=== PATIENT | male | born 1975 | race Caucasian/White ===

== ENCOUNTER 2023-12-12 06:46 | Emergency (ER) | payer MEDICAID ==
[~2023-12-12] VITALS: Ht 182.9 cm; Wt 91.0 kg
[2023-12-12 06:56] VITALS: TEMP 97.6
[2023-12-12 07:59] VITALS: BP 122/74; PULSE 72; RESP 18
== END 2023-12-12 08:00 | disposition home or self-care (01) ==
LOC: EMS 06:47
DX: M79.672 Pain in left foot (principal)
CPT/HCPCS: 99283